=== PATIENT | male | born 1965 | race African-American/Black ===

== ENCOUNTER 2018-08-22 13:06 | Inpatient (IN) | payer OTHER ==
[~2018-08-22] VITALS: Ht 180.3 cm; Wt 103.0 kg
[2018-08-22 16:35] VITALS: PULSE 94
[2018-08-22 16:53] VITALS: BP 141/82; PULSE 86; RESP 19
[2018-08-22 17:09] VITALS: Ht 180.3 cm; Wt 103.0 kg
--- NOTE | 2018-08-22 18:17 | HP ---
Date/Time of Note Date/Time of Note DATE: 08/22/18 TIME: 18:12 Assessment/Plan VTE Prophylaxis Pharmacological prophylaxis: LMWH Lines/Catheters Urinary Cath still in place: No Assessment/Plan Hospital Course Chief complaint Cough History of present illness 53-year-old gentleman who presents from home initially to the ER with 1-2 days of cough with wheezing. Denies any hemoptysis fever or weight loss. Appetite okay no chills Reiger nausea vomiting. No history of flu shot. States he does not do flu shots. No sore throat travel ill contacts. Has been on disability. As an inhaler. This episode feels similar to other asthma episodes. -Transferred for continuity with insurance. Concern of pneumonia asthma. Vital signs stable wheezing bundle branch block Past medical history Asthma Tobacco Pneumonia Flulike illness Disability Past surgical history Knees Social history No alcohol positive tobacco. Family history There is no family history of early coronary disease cancer or stroke. Positive asthma Allergies: No known drug allergies Review of systems Neuro: No loss of speech vision headache Cardiovascular: No chest pain no dyspnea no edema Lungs: Cough wheezing no fever Abdomen: No pain nausea vomiting diarrhea Genitourinary: No dysuria hematuria abdominal pain Skeletal: No gait dysfunction no rash no itching no edema Hematological system: No hematochezia melena hematuria Constitutional: No fevers no chills no Reiger Endocrine: No diabetes dyslipidemia or thyroid dysfunction Psychiatry: Patient has a stable mood any signal agitation anxiety depression mild agitation Physical examination No pallor adenopathy icterus Regular no murmur rub gallop Bilateral wheeze mild tachypnea Bowel sounds present nontender nondistended no RG overweight No edema/Homans Assessment and plan 1. Asthmatic bronchitis possible status, mild stable continue aerosols steroids 2. Tobacco abuse status post counseling offered patch 3. Chronic asthma consider step of therapy and counseling regarding flu shot HPI/ROS Admit Date/Time Admit Date/Time Aug 22, 2018 at 16:25 PMH/Family/Social Social History Smoking Status: Current every day smoker Exam/Review of Systems Vital Signs Vitals Vital Signs Date Temp Pulse Resp B/P (MAP) Pulse Ox O2 O2 Flow FiO2 Time Delivery Rate 08/22/18 98.7 86 19 141/82 95 16:53 (101) KAE MOSER MD Aug 22, 2018 18:17
[2018-08-22] MEDS ORDERED: DOCUSATE SODIUM 100 MG CAP PO PRN (18:30)
[2018-08-22] MEDS ORDERED: ALBUTEROL 0.083% (NEB) 2.5 MG/3 ML AMP HHN PRN (18:30)
[2018-08-22] MEDS ORDERED: ONDANSETRON 4 MG INJ IV PRN (18:30)
[2018-08-22] MEDS ORDERED: BISACODYL 10 MG SUPP PR PRN (18:30)
[2018-08-22] MEDS ORDERED: GUAIFENESIN/DM 5ML CUP PO PRN (18:30)
[2018-08-22] MEDS ORDERED: CEFTRIAXONE 2 GM/50 ML (PMX) 50 ML IVPB SCH (18:30)
[2018-08-22] MEDS ORDERED: morphine 2 MG INJ IV PRN (18:30)
[2018-08-22] MEDS ORDERED: BISACODYL (EC) 5 MG TAB PO PRN (18:30)
[2018-08-22] MEDS ORDERED: ZOLPIDEM 5 MG TAB PO PRN (18:30)
[2018-08-22] MEDS ORDERED: ACETAMINOPHEN 325 MG TAB PO PRN (18:30)
[2018-08-22] MEDS ORDERED: MAGNESIUM HYDROXIDE 30ML CUP PO PRN (18:30)
[2018-08-22] MEDS ORDERED: NACL 0.9% 3 ML SYG IV SCH (18:30)
[2018-08-22] MEDS ORDERED: HYDROCODONE/APAP (5/325) TAB PO PRN (18:30)
[2018-08-22 18:43] VITALS: PULSE 94
[2018-08-22] MEDS: SOD CHLORIDE 0.9% 1,000 ML IV SCH (18:55)
[2018-08-22] MEDS: AZITHROMYCIN 250 MG TAB PO SCH (18:56)
[2018-08-22] MEDS: METHYLPREDNISOLONE 125 MG INJ IV SCH ×3 (18:56→21:09)
[2018-08-22] MEDS: MAGNESIUM OXIDE 400 MG TAB PO SCH ×3 (18:56→21:09)
[2018-08-22 19:50] VITALS: BP 126/72; PULSE 91; RESP 18
[2018-08-22 20:00] VITALS: PULSE 91
[2018-08-22] MEDS: ALBUTEROL 0.083% (NEB) 2.5 MG/3 ML AMP HHN SCH (20:53)
[2018-08-22] MEDS ORDERED: traMADol 50 MG TAB PO PRN (21:30)
[2018-08-23] VITALS: PULSE 89
[2018-08-23] MEDS: ALBUTEROL 0.083% (NEB) 2.5 MG/3 ML AMP HHN SCH ×2 (00:29→09:54)
[2018-08-23 04:00] VITALS: PULSE 79
[2018-08-23] MEDS: SOD CHLORIDE 0.9% 1,000 ML IV SCH (04:19)
[2018-08-23 07:52] VITALS: BP 117/63; PULSE 90; RESP 20
[2018-08-23 08:29] VITALS: PULSE 81
[2018-08-23] MEDS: AZITHROMYCIN 250 MG TAB PO SCH (08:54)
[2018-08-23] MEDS ORDERED: ENOXAPARIN 40 MG/0.4 ML SYG SC SCH (09:00)
[2018-08-23] MEDS ORDERED: ALBU90AE INHALATION (10:57)
[2018-08-23] MEDS ORDERED: AZIT250T13 PO (10:57)
[2018-08-23] MEDS ORDERED: GUAI120S26 PO (10:57)
[2018-08-23] MEDS ORDERED: ACET325T33 PO (10:57)
[2018-08-23] MEDS ORDERED: PRED20TA PO (10:57)
--- NOTE | 2018-08-23 10:57 | PDOCDIS ---
Discharge Instructions CONDITION [id number] Patient Condition: [id number] Stable HOME CARE INSTRUCTIONS: [id number] Diet Instructions: [id number] Regular ACTIVITY: [id number] Activity Restrictions: [id number] Slowly Increase Activity FOLLOW UP/APPOINTMENTS Follow-up Plan appt primary 1wk KAE MOSER MD Aug 23, 2018 10:57
== END 2018-08-23 11:55 | disposition home or self-care (01) | DRG 203 ==
LOC: 6WM 13:06 → UNDOADMIN 13:06 → 6WM 16:25
PROVIDERS: ADMIT Internal Medicine; ATTEND Internal Medicine
DX: J45.909 Unspecified asthma, uncomplicated (principal); F17.200 Nicotine dependence, unspecified, uncomplicated
CPT/HCPCS: 71045; 80053; 83036; 83735; 84443; 85025; 85610; 87400; 94640; 94664; J0696; J1650; J2930; J7030